=== PATIENT | male | born 1980 ===

== ENCOUNTER 2018-01-31 15:40 | Inpatient (IN) | payer MEDICAID ==
[2018-01-31] MEDS ORDERED: Sodium Chloride 0.9% 1,000 ML IV ONE ×2 (16:42→18:05)
[2018-01-31] MEDS ORDERED: cefTRIAXone IV 1 gm in Dextros 50 ML IVPB STA (16:42)
[2018-01-31 16:59] LABS: BASO % 0.2 % (0.0-2.0); EOS % 0.2 % (0.0-4.0); HEMOGLOBIN 13.7 g/dL (12.0-18.0); LYMPH # 0.9 K/uL (1.0-4.3); LYMPH % 5.6 % (20.0-40.0); MEAN CORPUSCULAR HEMOGLOBIN 28.3 pg (27.0-31.0); MEAN CORPUSCULAR HGB CONC 33.3 g/dL (33.0-37.0); MEAN PLATELET VOLUME 7.2 fL (7.2-11.7); MONO % 5.8 % (0.0-10.0); NEUT % 88.2 % (50.0-75.0); PLATELET COUNT 208 K/uL (130-400); RBC 4.85 Mil/uL (4.40-5.90); RED CELL DISTRIBUTION WIDTH 13.5 % (11.5-14.5)
[2018-01-31 17:07] LABS: INR 1.3; PROTHROMBIN TIME 13.8 SECONDS (9.7-12.2)
[2018-01-31 17:08] LABS: SQUAMOUS EPITHIAL 1 /hpf (0-5); URINE BACTERIA FEW (<OCC); URINE BILIRUBIN NEGATIVE (NEGATIVE); URINE BLOOD 3+ (NEGATIVE); URINE CLARITY Hazy (Clear); URINE COLOR Amber (YELLOW); URINE GLUCOSE (UA) NORMAL (Normal); URINE LEUKOCYTE ESTERASE 2+ Leu/uL (Negative); URINE PROTEIN 2+ mg/dL (NEGATIVE); URINE UROBILINOGEN NORMAL mg/dL (0.2-1.0); WBC CLUMPS MOD /hpf
[2018-01-31 17:10] LABS: VENOUS BLOOD GAS BASE EXCESS 3.2 mmol/L (0.0-2.0); VENOUS BLOOD GAS PCO2 45 mmHg (40-60); VENOUS BLOOD GAS PO2 32 mm/Hg (30-55); VENOUS BLOOD PH 7.41 (7.32-7.43)
[2018-01-31] MEDS ORDERED: cefTRIAXone 1 gm 1 GM/100 ML BAG IVPB ONE (17:13)
[2018-01-31 17:14] LABS: ALB/GLOB RATIO 1.3 (1.0-2.1); ALBUMIN 3.9 g/dL (3.5-5.0); ALT/SGPT 34 U/L (21-72); AST/SGOT 28 U/L (17-59); BLOOD UREA NITROGEN 14 mg/dL (9-20); CALCIUM 8.6 mg/dl (8.6-10.4); GFR NON-AFRICAN AMERICAN > 60
--- NOTE | 2018-01-31 17:28 | RAD ---
HISTORY: Sepsis Patient COMPARISON: None available. TECHNIQUE: Chest, one view. FINDINGS: Examination limited by habitus. LUNGS: No focal consolidation. Please note that chest x-ray has limited sensitivity for the detection of pulmonary masses. PLEURA: No significant pleural effusion identified. No definite pneumothorax . CARDIOVASCULAR: Heart size appears within normal limits. OSSEOUS STRUCTURES: No acute osseous abnormality identified. VISUALIZED UPPER ABDOMEN: Unremarkable. OTHER FINDINGS: None. IMPRESSION: No focal consolidation, significant pleural effusion, or definite pneumothorax identified.
--- NOTE | 2018-01-31 17:45 | CT ---
Date of service: 01/31/2018 PROCEDURE: CT Abdomen and Pelvis without intravenous contrast HISTORY: hematuria/fever - r/o kidney stone vs. pyelo COMPARISON: None. TECHNIQUE: Contiguous images were obtained from the domes of the diaphragms to the upper thighs without the administration of intravenous contrast. Oral contrast was not administered. Radiation dose: Total exam DLP = 1022.7 mGy-cm. This CT exam was performed using one or more of the following dose reduction techniques: Automated exposure control, adjustment of the mA and/or kV according to patient size, and/or use of iterative reconstruction technique. FINDINGS: LOWER THORAX: Unremarkable. LIVER: Unremarkable. No gross lesion or ductal dilatation. GALLBLADDER AND BILE DUCTS: Unremarkable. PANCREAS: Unremarkable. No gross lesion or ductal dilatation. SPLEEN: Unremarkable. ADRENALS: Unremarkable. No mass. KIDNEYS AND URETERS: Trace bilateral perinephric stranding, right slightly more than left. No hydronephrosis. No solid mass. VASCULATURE: Unremarkable. No aortic aneurysm. BOWEL: Unremarkable. No obstruction. No gross mural thickening. APPENDIX: Unremarkable. Normal appendix. PERITONEUM: Nonspecific hazy change within the upper central mesentery. No free fluid. No free air. LYMPH NODES: Unremarkable. No enlarged lymph nodes. BLADDER: Underdistended, but with prominent wall and questionable mild perivesicular stranding. REPRODUCTIVE: Unremarkable. BONES: No acute fracture. OTHER FINDINGS: None. IMPRESSION: No evidence of urolithiasis. Trace bilateral perinephric stranding, right slightly more than left, which can be seen in the setting of recently passed calculi and/or infection. Under distended urinary bladder with prominent wall and questionable mild perivesicular stranding. Constellation of findings are suggestive of cystitis with bilateral ascending urinary tract infections and concurrent pyelonephritis. Hazy change within the central mesentery. This is a nonspecific finding which can be seen with mesenteric edema, lymphedema, hemorrhage and infiltration with inflammatory or neoplastic cells.
--- NOTE | 2018-01-31 18:28 | C.PDOC ---
History Of Present Illness 37 y/o male presents to the ED complaining of hematuria, fever, and difficulty passing urine for the past couple of days. + Nausea. No vomiting. Denies prior history of kidney stones. States that he has had this kidney infection in the past. Otherwise he denies any abdominal pain, diarrhea, dysuria, or other complaints. Time Seen by Provider: 01/31/18 16:42 Chief Complaint (Nursing): Fever History Per: Patient History/Exam Limitations: no limitations Onset/Duration Of Symptoms: Days Current Symptoms Are (Timing): Still Present Past Medical History Reviewed: Historical Data, Nursing Documentation, Vital Signs Vital Signs: Last Vital Signs Temp 99.4 F 01/31/18 18:09 Pulse 104 H 01/31/18 18:00 Resp 29 H 01/31/18 18:00 BP 126/69 01/31/18 18:00 Pulse Ox 99 01/31/18 18:00 - Medical History PMH: No Chronic Diseases Surgical History: No Surg Hx Family History: States: No Known Family Hx - Social History Hx Tobacco Use: Yes Hx Alcohol Use: Yes Hx Substance Use: No - Immunization History Hx Tetanus Toxoid Vaccination: Yes Hx Influenza Vaccination: No Hx Pneumococcal Vaccination: No Review Of Systems Except As Marked, All Systems Reviewed And Found Negative. Constitutional: Positive for: Fever Cardiovascular: Negative for: Chest Pain Respiratory: Negative for: Shortness of Breath Gastrointestinal: Positive for: Nausea. Negative for: Vomiting, Abdominal Pain, Diarrhea, Hematochezia Genitourinary: Positive for: Hematuria, Other (Difficulty passing urine). Negative for: Dysuria, Incontinence Neurological: Negative for: Weakness, Dizziness Physical Exam - Physical Exam Appears: Non-toxic, No Acute Distress Skin: Normal Color, Warm (to touch) Head: Atraumatic, Normacephalic Eye(s): bilateral: Normal Inspection, PERRL, EOMI Oral Mucosa: Moist Neck: Normal ROM Chest: Symmetrical Cardiovascular: Rhythm Regular, No Murmur Respiratory: Normal Breath Sounds, No Rales, No Rhonchi, No Wheezing Gastrointestinal/Abdominal: Soft, No Tenderness, No Distention, No Guarding Back: No CVA Tenderness, No Vertebral Tenderness Extremity: Bilateral: Atraumatic, Normal Color And Temperature, Normal ROM Neurological/Psych: Oriented x3, Normal Speech ED Course And Treatment - Laboratory Results Result Diagrams: 01/31/18 16:55 01/31/18 16:55 O2 Sat by Pulse Oximetry: 99 (RA) Pulse Ox Interpretation: Normal - Other Rad CXR X-Ray: Viewed By Me, Read By Radiologist Interpretation: michael. Patient NameFAHEEM MOORE / [id number] Burk MD. Study [id number] 16:53:29Transcriber. Sex / AgeM / 037YApproverKaitlin Burk MD. [facility]lica HillApproval [id number] 17:27:37. My Comment. Study Comments. Report. HISTORY: Sepsis Patient. COMPARISON: None available. TECHNIQUE: Chest, one view. FINDINGS: Examination limited by habitus. LUNGS: No focal consolidation. Please note that chest x-ray has limited sensitivity for the detection of pulmonary masses. PLEURA: No significant pleural effusion identified. No definite pneumothorax . CARDIOVA SCULAR: Heart size appears within normal limits. OSSEOUS STRUCTURES: No acute osseous abnormality identified. VISUALIZED UPPER ABDOMEN: Unremarkable. OTHER FINDINGS: None. IMPRESSION: No focal consolidation, significant pleural effusion, or definite pneumothorax identified. - CT Scan/US CT Head Other Rad Studies (CT/US): Read By Radiologist, Radiology Report Reviewed CT/US Interpretation: Evelyn. Patient NameFAHEEM MOORE / [id number] Torrez MD. Study [id number] 17:24:17Transcriber. Sex / AgeM / 37YApproMauricio Llanos MD. [facility] HillApproval [id number] 17:44:24. My Comment. Study Comments. Report. Date of service: 01/31/2018. PROCEDURE: CT Abdomen and Pelvis without intravenous contrast. HISTORY: hematuria/fever - r/o kidney stone vs. pyelo. COMPARISON: None. TECHNIQUE: Contiguous images were obtained from the domes of the diaphragms to the upper thighs without the administration of intravenous contrast. Oral contrast was not administered. Radiation dose: Total exam DLP = 1022.7 mGy-cm. This CT exam was performed using one or more of the following dose reduction techniques: Automated exposure control, adjustment of the mA and/or kV according to patient size, and/or use of iterative reconstruction technique. FINDINGS: LOWER THORAX: Unremarkable. LIVER: Unremarkable. No gross lesion or ductal dilatation. GALLBLADDER AND BILE DUCTS: Unremarkable. PANCREAS: Unremarkable. No gross lesion or ductal dilatation. SPLEEN: Unremarkable. ADRENALS: Unremarkable. No mass. KIDNEYS AND URETERS: Trace bilateral perinephric stranding, right slightly more than left. No hydronephrosis. No solid mass. VASCULATURE: Unremarkable. No aortic aneurysm. BOWEL: Unremarkable. No obstruction. No gross mural thickening. APPENDIX: Unremarkable. Normal appendix. PERITONEUM: Nonspecific hazy change within the upper central mesentery. No free fluid. No free air. LYMPH NODES: Unremarkable. No enlarged lymph nodes. BLADDER: Underdistended, but with prominent wall and questionable mild perivesicular stranding. REPRODUCTIVE: Unremarkable. BONES: No acute fracture. OTHER FINDINGS: None. IMPRESSION: No evidence of urolithiasis. Trace bilateral perinephric stranding, right slightly more than left, which can be seen in the setting of recently passed calculi and/or infection. Under distended urinary bladder with prominent wall and questionable mild perivesicular stranding. Constellation of findings are suggestive of cystitis with bilateral ascending urinary tract infections and concurrent pyelonephritis. Hazy change within the central mesentery. This is a nonspecific finding which can be seen with mesenteric edema, lymphedema, hemorrhage and infiltration with inflammatory or neoplastic cells. Medical Decision Making Medical Decision Making: Initial Plan: --VBG --Blood work --Blood and urine cultures --UA --CXR --CT Abd/Pelvis --IV fluids --Rocephin IV 1 gm IVPB --Tylenol 975 mg PO --Reassess and dispo Progress: CT findings discussed w/ patient. 2nd liter of fluids given. Spoke to Dr. Hernandez, patient will be admitted for bilateral pyelonephritis. Disposition Discussed With : Tim Hernandez Jr. Doctor Will See Patient In The: Hospital Counseled Patient/Family Regarding: Studies Performed, Diagnosis - Disposition Disposition: HOSPITALIZED Disposition Time: 18:05 Condition: STABLE - Clinical Impression Clinical Impression: Pyelonephritis - Scribe Statement The provider has reviewed the documentation as recorded by the Scribe (Jazmine Napoles) Provider Attestation: All medical record entries made by the Scribe were at my direction and personally dictated by me. I have reviewed the chart and agree that the record a ccurately reflects my personal performance of the history, physical exam, medical decision making, and the department course for this patient. I have also personally directed, reviewed, and agree with the discharge instructions and disposition.
[2018-01-31 18:58] LABS: BASOPHIL 1 % (0-2); LYMPHOCYTE 3 % (20-40); MONOCYTE 5 % (0-10); NEUTROPHIL 91 % (50-75); PLATELET ESTIMATE NORMAL (NORMAL); TOTAL CELLS COUNTED 100
--- NOTE | 2018-01-31 19:09 | CP.PCM.HP ---
History of Present Illness - History of Present Illness History of Present Illness: History and Physical - Dr Hernandez Service CC: "Blood in urine and fever" HPI: Patient is a 37 year old male with no significant past medical history who presents to the emergency department for blood in the urine and difficulty urinating that started today while at work. Patient states that his urine was pinkish. He also admits to having subjective fevers, generalized weakness and body aches that started last night. Patient reports taking Ibuprofen with some relief. He states that this has happened to him before 2-3 years ago and he was treated with antibiotics. Code sepsis was called in the emergency room. He currently denies any fevers, chills, headaches, dizziness, cp, palpitations, sob, abdominal pain, hematuria, penile discharge, constipation, diarrhea, dysuria, sick contacts, recent travel, changes in bowel habits. ED course: Tylenol 975mg x 1, Ceftriaxone 1gm, NS Bolus 3L Allergies: NKDA Medications: Denies Medical History: Denies Surgical History: Denies Family History: Mother - Hypertension (); Father - [place] at age 50; Grandmother - Diabetes Mellitus Social History: Works at [employer], Smokes 1ppd for > 15 years, Drinks alcohol occasionally, drank red wine, Bacardi and Renny Mahan last ngiht; former cocaine user Present on Admission - Present on Admission Any Indicators Present on Admission: No Past Patient History - Past Social History Smoking Status: Heavy Smoker > 10 Cigarettes Daily - PSYCHIATRIC Hx Substance Use: No - SURGICAL HISTORY Hx Surgeries: No Meds Allergies/Adverse Reactions: Allergies Allergy/AdvReac Type Severity Reaction Status Date / Time No Known Allergies Allergy Verified 01/31/18 16:01 Physical Exam - Constitutional Appears: Non-toxic, No Acute Distress - Head Exam Head Exam: ATRAUMATIC, NORMAL INSPECTION, NORMOCEPHALIC - Eye Exam Eye Exam: EOMI, Normal appearance Pupil Exam: NORMAL ACCOMODATION - ENT Exam ENT Exam: Mucous Membranes Moist - Respiratory Exam Respiratory Exam: Clear to Auscultation Bilateral, NORMAL BREATHING PATTERN. absent: Rales, Rhonchi, Wheezes - Cardiovascular Exam Cardiovascular Exam: REGULAR RHYTHM, +S1, +S2 - GI/Abdominal Exam GI & Abdominal Exam: Normal Bowel Sounds, Soft. absent: Guarding, Rebound, Rigid, Tenderness - Extremities Exam Extremities exam: Positive for: normal capillary refill, normal inspection, pedal pulses present. Negative for: calf tenderness - Back Exam Back exam: CVA tenderness (L). absent: rash noted - Neurological Exam Neurological exam: Alert, CN II-XII Intact, Oriented x3 - Psychiatric Exam Psychiatric exam: Normal Affect, Normal Mood - Skin Skin Exam: Dry, Normal Color, Warm Results - Vital Signs Recent Vital Signs: Last Vital Signs Temp 99.4 F 01/31/18 18:09 Pulse 104 H 01/31/18 18:00 Resp 29 H 01/31/18 18:00 BP 126/69 01/31/18 18:00 Pulse Ox 99 01/31/18 18:51 - Labs Result Diagrams: 01/31/18 16:55 01/31/18 16:55 Labs: Laboratory Results - last 24 hr 01/31/18 01/31/18 01/31/18 16:55 16:55 16:55 WBC 17.0 H RBC 4.85 Hgb 13.7 Hct 41.2 MCV 85.0 MCH 28.3 MCHC 33.3 RDW 13.5 Plt Count 208 MPV 7.2 Neut % (Auto) 88.2 H Lymph % (Auto) 5.6 L Worth % (Auto) 5.8 Eos % (Auto) 0.2 Baso % (Auto) 0.2 Neut # (Auto) 15.0 H Lymph # (Auto) 0.9 L Worth # (Auto) 1.0 H Eos # (Auto) 0.0 Baso # (Auto) 0.0 Neutrophils % (Manual) 91 H Lymphocytes % (Manual) 3 L Monocytes % (Manual) 5 Basophils % (Manual) 1 Platelet Estimate Normal PT 13.8 H INR 1.3 APTT 30 pO2 VBG pH VBG pCO2 VBG HCO3 VBG Total CO2 VBG O2 Sat (Calc) VBG Base Excess VBG Potassium Glucose Lactate FiO2 Sodium 138 Potassium 3.6 Chloride 101 Carbon Dioxide 28 Anion Gap 13 BUN 14 Creatinine 1.0 Est GFR ( Amer) > 60 Est GFR (Non-Af Amer) > 60 Random Glucose 185 H Calcium 8.6 Phosphorus 2.5 Magnesium 2.0 Total Bilirubin 0.8 AST 28 ALT 34 Alkaline Phosphatase 75 Total Protein 6.9 Albumin 3.9 Globulin 2.9 Albumin/Globulin Ratio 1.3 Venous Blood Potassium Urine Color Urine Clarity Urine pH Ur Specific [place] Urine Protein Urine Glucose (UA) Urine Ketones Urine Blood Urine Nitrate Urine Bilirubin Urine Urobilinogen Ur Leukocyte Esterase Urine WBC (Auto) Urine RBC (Auto) Urine WBC Clumps (Auto) Ur Squamous Epith Cells Urine Bacteria Urine Yeast (Budding) 01/31/18 01/31/18 16:55 17:05 WBC RBC Hgb Hct MCV MCH MCHC RDW Plt Count MPV Neut % (Auto) Lymph % (Auto) Worth % (Auto) Eos % (Auto) Baso % (Auto) Neut # (Auto) Lymph # (Auto) Worth # (Auto) Eos # (Auto) Baso # (Auto) Neutrophils % (Manual) Lymphocytes % (Manual) Monocytes % (Manual) Basophils % (Manual) Platelet Estimate PT INR APTT pO2 32 VBG pH 7.41 VBG pCO2 45 VBG HCO3 26.5 VBG Total CO2 29.9 H VBG O2 Sat (Calc) 68.3 H VBG Base Excess 3.2 H VBG Potassium 3.3 L Glucose 199 H Lactate 1.8 FiO2 21.0 Sodium 136.0 Potassium Chloride 105.0 Carbon Dioxide Anion Gap BUN Creatinine Est GFR ( Amer) Est GFR (Non-Af Amer) Random Glucose Calcium Phosphorus Magnesium Total Bilirubin AST ALT Alkaline Phosphatase Total Protein Albumin Globulin Albumin/Globulin Ratio Venous Blood Potassium 3.3 L Urine Color Serina Urine Clarity Hazy Urine pH 5.0 Ur Specific [place] 1.027 Urine Protein 2+ H Urine Glucose (UA) Normal Urine Ketones Trace Urine Blood 3+ H Urine Nitrate Negative Urine Bilirubin Negative Urine Urobilinogen Normal Ur Leukocyte Esterase 2+ H Urine WBC (Auto) 332 H Urine RBC (Auto) 1973 H Urine WBC Clumps (Auto) Mod H Ur Squamous Epith Cells 1 Urine Bacteria Few H Urine Yeast (Budding) Occ H Assessment & Plan - Assessment and Plan (Free Text) Assessment: A/P: Patient is a 37 year old male with no significant medical history who presented with hematuria, subjective fevers and body aches. Bilateral Pyleonephritis, Hematuria -Stable, afebrile -Will admit inpatient for observation -Patient was given 975mg PO x 1 dose -UA showed +2 protein, +3 blood, +2 leukocyte esterase, WBC 332, RBC 1973 -F/U urine culture, blood cultures, procalcitonin -Continue Rocephin 1gm IVPB daily -Continue NS @ 100cc/hr -Tylenol 650mg PO Q6H prn, Zofran 4mg Q6H prn nausea -CT abdomen/pelvis showed trace bilateral perinephric stranding, right slightly more than left, under distended bladder with prominent wall, hazy change within the central mesentery (see full report) Tobacco abuse -Cessation encouraged GI/DVT ppx -No GI ppx indicated at this time -SCDs Plan discussed with Dr Mary Toth DO PGY-2
[2018-01-31] MEDS: Sodium Chloride 0.9% 1,000 ML IV SCH (20:33)
[2018-02-01] MEDS: Sodium Chloride 0.9% 1,000 ML IV SCH ×2 (05:19→14:49)
[2018-02-01 06:53] LABS: BASO # 0.1 K/uL (0.0-0.2); BASO % 0.4 % (0.0-2.0); EOS # 0.1 K/uL (0.0-0.7); EOS % 1.1 % (0.0-4.0); HEMOGLOBIN 13.3 g/dL (12.0-18.0); LYMPH # 1.3 K/uL (1.0-4.3); LYMPH % 10.6 % (20.0-40.0); MEAN CELL VOLUME 84.7 fL (80.0-94.0); MEAN CORPUSCULAR HEMOGLOBIN 29.2 pg (27.0-31.0); MEAN CORPUSCULAR HGB CONC 34.5 g/dL (33.0-37.0); MEAN PLATELET VOLUME 7.4 fL (7.2-11.7); NEUT # 10.1 K/uL (1.8-7.0); NEUT % 79.9 % (50.0-75.0); RBC 4.54 Mil/uL (4.40-5.90); RED CELL DISTRIBUTION WIDTH 13.3 % (11.5-14.5); WHITE BLOOD COUNT 12.6 K/uL (4.8-10.8)
[2018-02-01 07:22] LABS: ALB/GLOB RATIO 1.3 (1.0-2.1); ALBUMIN 3.4 g/dL (3.5-5.0); ALT/SGPT 27 U/L (21-72); AST/SGOT 22 U/L (17-59); BLOOD UREA NITROGEN 10 mg/dL (9-20); CALCIUM 7.9 mg/dl (8.6-10.4); GFR NON-AFRICAN AMERICAN > 60
--- NOTE | 2018-02-01 14:43 | CP.PCM.PN ---
Subjective - Date & Time of Evaluation Date of Evaluation: 02/01/18 Time of Evaluation: 14:43 - Subjective Subjective: Andres Siegel PGY-1, Medicine progress note for Dr. Hernandez Pt was seen and examined at bedside. No acute events overnight. Pt reports b ilateral flank soreness, left greater than right. Pt states that his hematuria, chills and body aches have resolved since starting antibiotics in the hospital. Pt denies dizziness, headache, visual changes, fever, chills, chest pain, sob, abdominal pain, nausea, vomiting, diarrhea, dysuria, hematuria, numbness or weakness. A 12-point ROS was reviewed and is otherwise unremarkable. Objective - Vital Signs/Intake and Output Vital Signs (last 24 hours): Temp Pulse Resp BP Pulse Ox 98.4 F 74 20 142/86 96 02/01/18 07:41 02/01/18 07:41 02/01/18 07:41 02/01/18 07:41 02/01/18 07:41 Intake and Output: 02/01/18 02/01/18 06:59 18:59 Intake Total 1540 Balance 1540 - Medications Medications: Current Medications Acetaminophen (Tylenol 325mg Tab) 650 mg PO Q6 PRN PRN Reason: Fever >100.4 F Last Admin: 02/01/18 03:41 Dose: 650 mg Sodium Chloride (Sodium Chloride 0.9%) 1,000 mls @ 100 mls/hr IV .Q10H RANDELL Last Admin: 02/01/18 05:19 Dose: 100 mls/hr Ceftriaxone Sodium 1 gm/ (Sodium Chloride) 100 mls @ 100 mls/hr IVPB DAILY RANDELL; Protocol Last Admin: 02/01/18 10:35 Dose: 100 mls/hr Ondansetron HCl (Zofran Inj) 4 mg IVP Q6H PRN PRN Reason: Nausea/Vomiting Pneumococcal Polyvalent Vaccine (Pneumovax 23 Vaccine) 0.5 ml IM .ONCE ONE Stop: 02/02/18 10:01 - Labs Labs: 02/01/18 06:35 02/01/18 06:35 PT 13.8 SECONDS (9.7-12.2) H 01/31/18 16:55 INR 1.3 01/31/18 16:55 APTT 30 SECONDS (21-34) 01/31/18 16:55 - Constitutional Appears: Non-toxic, No Acute Distress - Head Exam Head Exam: ATRAUMATIC, NORMAL INSPECTION - Eye Exam Eye Exam: EOMI, Normal appearance - ENT Exam ENT Exam: Mucous Membranes Moist - Neck Exam Neck Exam: Normal Inspection - Respiratory Exam Respiratory Exam: Clear to Ausculation Bilateral, NORMAL BREATHING PATTERN. absent: Rales, Rhonchi, Wheezes, Respiratory Distress - Cardiovascular Exam Cardiovascular Exam: REGULAR RHYTHM, +S1, +S2 Additional comments: 3+ bilateral DP and radial pulses - GI/Abdominal Exam GI & Abdominal Exam: Soft, Normal Bowel Sounds. absent: Firm, Guarding, Rigid, Tenderness, Organomegaly, Rebound - Extremities Exam Extremities Exam: Normal Capillary Refill, Normal Inspection. absent: Calf Tenderness, Pedal Edema - Back Exam Back Exam: NORMAL INSPECTION. absent: CVA tenderness (L), CVA tenderness (R), paraspinal tenderness, rash noted - Neurological Exam Neurological Exam: Alert, Awake, Oriented x3 - Psychiatric Exam Psychiatric exam: Normal Affect, Normal Mood - Skin Skin Exam: Dry, Normal Color, Warm Assessment and Plan - Assessment and Plan (Free Text) Assessment: This is a patient is a 37 year old male with history of flank pain with hematuria treated with antibiotics 2-3 years ago who presented with hematuria, subjective fevers and body aches. Bilateral Pyleonephritis, Hematuria - CT abdomen/pelvis showed trace bilateral perinephric stranding, right slightly more than left, under distended bladder with prominent wall, hazy change within the central mesentery (see full report) - pt is afebrile with downtrending leukocytosis - UA showed +2 protein, +3 blood, +2 leukocyte esterase, WBC 332, RBC 1973, yeast (occ) - procalcitonin is 0.34 - Continue Rocephin 1gm IVPB daily - due to yeast being in the urine, pt started on Diflucan 200 mg IVPB q24h - Continue NS @ 100cc/hr - Tylenol 650mg PO Q6H prn, Zofran 4mg Q6H prn nausea - F/U urine culture, blood cultures - f/u HIV 1/2 AG/AB, 4th generation Tobacco abuse - Cessation encouraged, pt understand negative health effects from smoking PPX/Diet - No GI ppx indicated at this time - SCDs - regular diet Case was reviewed and discussed with attending physician, Dr. Hernandez All medical management as per Dr. Mary Siegel PGY-1
[2018-02-02] MEDS: Sodium Chloride 0.9% 1,000 ML IV SCH ×3 (03:10→12:02)
[2018-02-02 07:34] LABS: BASO % 0.4 % (0.0-2.0); EOS % 0.2 % (0.0-4.0); LYMPH # 0.6 K/uL (1.0-4.3); LYMPH % 8.9 % (20.0-40.0); MEAN CELL VOLUME 84.2 fL (80.0-94.0); MEAN CORPUSCULAR HGB CONC 34.5 g/dL (33.0-37.0); MEAN PLATELET VOLUME 7.2 fL (7.2-11.7); MONO # 0.6 K/uL (0.0-0.8); MONO % 8.7 % (0.0-10.0); NEUT # 5.4 K/uL (1.8-7.0); NEUT % 81.8 % (50.0-75.0); PLATELET COUNT 179 K/uL (130-400); RBC 4.83 Mil/uL (4.40-5.90); RED CELL DISTRIBUTION WIDTH 13.3 % (11.5-14.5); WHITE BLOOD COUNT 6.5 K/uL (4.8-10.8)
[2018-02-02 08:00] LABS: ALBUMIN 3.6 g/dL (3.5-5.0); BLOOD UREA NITROGEN 6 mg/dL (9-20); CALCIUM 8.4 mg/dl (8.6-10.4); GFR NON-AFRICAN AMERICAN > 60
[2018-02-02 08:01] LABS: ALB/GLOB RATIO 1.2 (1.0-2.1); ALT/SGPT 34 U/L (21-72); AST/SGOT 21 U/L (17-59)
[2018-02-02 08:06] VITALS: RESP 20
[2018-02-02 08:37] LABS: EOSINOPHIL 2 % (0-4); LYMPHOCYTE 8 % (20-40); MONOCYTE 9 % (0-10); NEUTROPHIL 81 % (50-75); PLATELET ESTIMATE NORMAL (NORMAL); TOTAL CELLS COUNTED 100
[2018-02-02] MEDS ORDERED: Fluconazole IV 200mg/100 ml NS 100 ML IVPB SCH (10:00)
[2018-02-02] MEDS ORDERED: Pneumococcal 23-Valent Vaccine IM ONE (10:00)
--- NOTE | 2018-02-02 13:28 | CP.PCM.PN ---
Subjective - Date & Time of Evaluation Date of Evaluation: 02/02/18 Time of Evaluation: 13:28 - Subjective Subjective: Andres Siegel PGY-1, Medicine progress note for Dr. Hernandez Objective - Vital Signs/Intake and Output Vital Signs (last 24 hours): Temp Pulse Resp BP Pulse Ox 100.4 F H 84 20 119/74 98 02/02/18 11:49 02/02/18 08:05 02/02/18 08:05 02/02/18 08:05 02/02/18 08:05 Intake and Output: 02/02/18 02/02/18 06:59 18:59 Intake Total 1999 Balance 1999 - Medications Medications: Current Medications Acetaminophen (Tylenol 325mg Tab) 650 mg PO Q6 PRN PRN Reason: Fever >100.4 F Last Admin: 02/02/18 11:49 Dose: 650 mg Sodium Chloride (Sodium Chloride 0.9%) 1,000 mls @ 100 mls/hr IV .Q10H RANDELL Last Admin: 02/02/18 12:02 Dose: Not Given Ceftriaxone Sodium 1 gm/ (Sodium Chloride) 100 mls @ 100 mls/hr IVPB DAILY RANDELL; Protocol Last Admin: 02/02/18 10:02 Dose: 100 mls/hr Fluconazole (Diflucan Iv 200 Mg/100 Ml Ns) 100 mls @ 100 mls/hr IVPB DAILY RANDELL; Protocol Last Admin: 02/02/18 11:04 Dose: 100 mls/hr Ondansetron HCl (Zofran Inj) 4 mg IVP Q6H PRN PRN Reason: Nausea/Vomiting Potassium Chloride (K-Dur 20 Meq Er Tab) 20 meq PO ONCE ONE Stop: 02/02/18 13:26 - Labs Labs: 02/02/18 07:21 02/02/18 07:21 PT 13.8 SECONDS (9.7-12.2) H 01/31/18 16:55 INR 1.3 01/31/18 16:55 APTT 30 SECONDS (21-34) 01/31/18 16:55
[2018-02-02] MEDS ORDERED: Potassium Chloride 20 mEq ER Tab PO ONE (13:30)
[2018-02-02 15:57] VITALS: BP 137/81; PULSE 78; TEMP 98; O2SAT 97
[2018-02-02] MEDS ORDERED: Influenza Vaccine 60 MCG/0.5 ML SYR (3 yr & up) IM ONE (18:35)
--- NOTE | 2018-02-02 19:59 | CP.PCM.DIS ---
Provider - Provider Date of Admission: 01/31/18 18:05 Attending physician: Tim Hernandez Jr, MD Time Spent in preparation of Discharge (in minutes): 35 Hospital Course - Lab Results Lab Results: Micro Results 01/31/18 16:49 Blood Blood Culture - Preliminary NO GROWTH AFTER 48 HOURS 01/31/18 16:59 Blood Blood Culture - Preliminary NO GROWTH AFTER 48 HOURS 01/31/18 16:55 Urine Urine Culture - Final Escherichia Coli Most Recent Lab Values WBC 6.5 K/uL (4.8-10.8) 02/02/18 07:21 RBC 4.83 Mil/uL (4.40-5.90) 02/02/18 07:21 Hgb 14.0 g/dL (12.0-18.0) 02/02/18 07:21 Hct 40.7 % (35.0-51.0) 02/02/18 07:21 MCV 84.2 fL (80.0-94.0) 02/02/18 07:21 MCH 29.0 pg (27.0-31.0) 02/02/18 07:21 MCHC 34.5 g/dL (33.0-37.0) 02/02/18 07:21 RDW 13.3 % (11.5-14.5) 02/02/18 07:21 Plt Count 179 K/uL (130-400) 02/02/18 07:21 MPV 7.2 fL (7.2-11.7) 02/02/18 07:21 Neut % (Auto) 81.8 % (50.0-75.0) H 02/02/18 07:21 Lymph % (Auto) 8.9 % (20.0-40.0) L 02/02/18 07:21 [place] % (Auto) 8.7 % (0.0-10.0) 02/02/18 07:21 Eos % (Auto) 0.2 % (0.0-4.0) 02/02/18 07:21 Baso % (Auto) 0.4 % (0.0-2.0) 02/02/18 07:21 Neut # (Auto) 5.4 K/uL (1.8-7.0) 02/02/18 07:21 Lymph # (Auto) 0.6 K/uL (1.0-4.3) L 02/02/18 07:21 [place] # (Auto) 0.6 K/uL (0.0-0.8) 02/02/18 07:21 Eos # (Auto) 0.0 K/uL (0.0-0.7) 02/02/18 07:21 Baso # (Auto) 0.0 K/uL (0.0-0.2) 02/02/18 07:21 Neutrophils % (Manual) 81 % (50-75) H 02/02/18 07:21 Lymphocytes % (Manual) 8 % (20-40) L 02/02/18 07:21 Monocytes % (Manual) 9 % (0-10) 02/02/18 07:21 Eosinophils % (Manual) 2 % (0-4) 02/02/18 07:21 Basophils % (Manual) 1 % (0-2) 01/31/18 16:55 Platelet Estimate Normal (NORMAL) 02/02/18 07:21 PT 13.8 SECONDS (9.7-12.2) H 01/31/18 16:55 INR 1.3 01/31/18 16:55 APTT 30 SECONDS (21-34) 01/31/18 16:55 pO2 32 mm/Hg (30-55) 01/31/18 17:05 VBG pH 7.41 (7.32-7.43) 01/31/18 17:05 VBG pCO2 45 mmHg (40-60) 01/31/18 17:05 VBG HCO3 26.5 mmol/L 01/31/18 17:05 VBG Total CO2 29.9 mmol/L (22-28) H 01/31/18 17:05 VBG O2 Sat (Calc) 68.3 % (40-65) H 01/31/18 17:05 VBG Base Excess 3.2 mmol/L (0.0-2.0) H 01/31/18 17:05 VBG Potassium 3.3 mmol/L (3.6-5.2) L 01/31/18 17:05 Sodium 136.0 mmol/l (132-148) 01/31/18 17:05 Chloride 105.0 mmol/L (98-107) 01/31/18 17:05 Glucose 199 mg/dl (75-110) H 01/31/18 17:05 Lactate 1.8 mmol/L (0.7-2.1) 01/31/18 17:05 FiO2 21.0 % 01/31/18 17:05 Sodium 139 mmol/L (132-148) 02/02/18 07:21 Potassium 3.5 mmol/L (3.6-5.2) L 02/02/18 07:21 Chloride 104 mmol/L (98-107) 02/02/18 07:21 Carbon Dioxide 26 mmol/L (22-30) 02/02/18 07:21 Anion Gap 13 (10-20) 02/02/18 07:21 BUN 6 mg/dL (9-20) L 02/02/18 07:21 Creatinine 0.9 mg/dL (0.8-1.5) 02/02/18 07:21 Est GFR ( Amer) > 60 02/02/18 07:21 Est GFR (Non-Af Amer) > 60 02/02/18 07:21 Random Glucose 97 mg/dL (75-110) 02/02/18 07:21 Calcium 8.4 mg/dl (8.6-10.4) L 02/02/18 07:21 Phosphorus 2.8 mg/dL (2.5-4.5) 02/02/18 07:21 Magnesium 1.8 mg/dL (1.6-2.3) 02/02/18 07:21 Total Bilirubin 0.4 mg/dL (0.2-1.3) 02/02/18 07:21 AST 21 U/L (17-59) 02/02/18 07:21 ALT 34 U/L (21-72) 02/02/18 07:21 Alkaline Phosphatase 75 U/L (38-126) 02/02/18 07:21 Total Protein 6.6 g/dL (6.3-8.3) 02/02/18 07:21 Albumin 3.6 g/dL (3.5-5.0) 02/02/18 07:21 Globulin 3.0 gm/dL (2.2-3.9) 02/02/18 07:21 Albumin/Globulin Ratio 1.2 (1.0-2.1) 02/02/18 07:21 Procalcitonin 0.34 NG/ML (0.19-0.49) 02/01/18 06:35 Venous Blood Potassium 3.3 mmol/L (3.6-5.2) L 01/31/18 17:05 Urine Color [place] (YELLOW) 01/31/18 16:55 Urine Clarity Hazy (Clear) 01/31/18 16:55 Urine pH 5.0 (5.0-8.0) 01/31/18 16:55 Ur Specific [place] 1.027 (1.003-1.030) 01/31/18 16:55 Urine Protein 2+ mg/dL (NEGATIVE) H 01/31/18 16:55 Urine Glucose (UA) Normal mg/dL (Normal) 01/31/18 16:55 Urine Ketones Trace mg/dL (NEGATIVE) 01/31/18 16:55 Urine Blood 3+ (NEGATIVE) H 01/31/18 16:55 Urine Nitrate Negative (NEGATIVE) 01/31/18 16:55 Urine Bilirubin Negative (NEGATIVE) 01/31/18 16:55 Urine Urobilinogen Normal mg/dL (0.2-1.0) 01/31/18 16:55 Ur Leukocyte Esterase 2+ [place]/uL (Negative) H 01/31/18 16:55 Urine WBC (Auto) 332 /hpf (0-5) H 01/31/18 16:55 Urine RBC (Auto) 1973 /hpf (0-3) H 01/31/18 16:55 Urine WBC Clumps (Auto) Mod /hpf (NONE) H 01/31/18 16:55 Ur Squamous Epith Cells 1 /hpf (0-5) 01/31/18 16:55 Urine Bacteria Few (<OCC) H 01/31/18 16:55 Urine Yeast (Budding) Occ /hpf (NEGATIVE) H 01/31/18 16:55 Discharge Exam - Head Exam Head Exam: ATRAUMATIC, NORMAL INSPECTION Discharge Plan - Discharge Medications Prescriptions: Ciprofloxacin HCl [Cipro] 500 mg PO BID #42 tab Fluconazole [Diflucan] 200 mg PO DAILY #10 tab - Follow Up Plan Condition: STABLE Disposition: HOME/ ROUTINE Instructions: Ciprofloxacin (Systemic), Quitting Smoking, Drugs to Help You Stop Using Tobacco, Urinary Tract Infection in Men (DC), Dysuria (GEN) Additional Instructions: Patient is medically stable and safe for discharge home. Patient should start the following medications: Ciprofloxacin 500 mg by mouth twice a day for 21 days. Patient should take over the counter Tylenol or Motrin as needed for pain and fever. Do not take more than the maximum dosage of Tylenol or Motrin, as indicated on the back of the bottle. Please return to the nearest Emergency Department if symptoms worsen, if fever (>100.4) is persistent and is not controlled by the recommended dose of Tylenol or Motrin. Patient should follow up with his primary medical doctor or Dr. Hernandez for CBC, CMP, urine culture and urinalysis in 2 weeks. Instructions explained to the patient, who understands and agrees with discharge plan. Referrals: Tim Hernandez Jr., MD [Medical Doctor] -
[2018-02-03] MEDS ORDERED: Potassium Chloride 20 mEq ER Tab PO ONE (12:05)
--- NOTE | 2018-02-03 15:23 | CARD ---
APPROVED REPORT Date of service: 01/31/2018 EKG Measurement Heart [id number] <Conclusion> Normal sinus rhythm Cannot rule out Anterior infarct, age undetermined Abnormal ECG
== END 2018-02-02 20:03 | disposition home or self-care (01) | DRG 321 ==
LOC: C.ER 15:40 → C.9E 18:05 → C.3T 18:32
PROVIDERS: ADMIT Internal Medicine; ATTEND Internal Medicine
DX: N10 Acute pyelonephritis (principal); R31.9 Hematuria, unspecified; F17.210 Nicotine dependence, cigarettes, uncomplicated